=== PATIENT | female | born 1975 | race Asian ===

== ENCOUNTER → 2016-06-25 | Outpatient (CLI) | payer OTHER ==
[~2016-06-25] MED LIST: FERR1TAB61 PO; MTR600X PO; OXYC-57 PO; PRENTAB26 PO
[2016-06-25 12:05] LABS: HEMATOCRIT 32.3 % (37-47)
[2016-06-25 12:49] LABS: URINE APPEARANCE CLEAR (CLEAR); URINE BILIRUBIN NEG (NEG); URINE COLOR YELLOW; URINE EPITHELIAL CELL AUTO >30 /lpf (0-5); URINE NITRITE NEG (NEG); URINE PH 7.5 (4.5-7.5); URINE SPECIFIC GRAVITY 1.008 (1.000-1.030); UROBILINOGEN NEG (NEG)
[2016-06-25 12:55] LABS: MANUAL MICROSCOPIC REQUIRED? NO; REVIEW REQ? YES
[2016-06-25 13:18] LABS: GTGD 50 Grams
== END | disposition home or self-care (01) ==
LOC: C.LAB1850 10:14
PROVIDERS: ATTEND Obstetrics & Gynecology
DX: O09.523 Supervision of elderly multigravida, third trimester (principal)

== ENCOUNTER → 2016-07-07 | Outpatient (CLI) | payer OTHER | END | disposition home or self-care (01) | LOC: C.LAB1850 08:13 | PROVIDERS: ATTEND Obstetrics & Gynecology | DX: O09.523 Supervision of elderly multigravida, third trimester (principal) ==

== ENCOUNTER → 2016-08-19 | Outpatient (CLI) | payer OTHER | END | disposition home or self-care (01) | LOC: C.LABSPEC 13:19 | PROVIDERS: ATTEND Obstetrics & Gynecology | DX: O09.523 Supervision of elderly multigravida, third trimester (principal); Z3A.00 Weeks of gestation of pregnancy not specified ==

== ENCOUNTER 2016-09-10 05:36 | Inpatient (IN) | payer OTHER ==
--- NOTE | 2016-09-09 10:53 | PAT Medication Instructions ---
Service Date Sep 09, 2016. Current Home Medication List Ferrous Sulfate (Iron), 1 TAB PO QAM Multivit/Min/Iron/Fol Ac/Pren ( Vitamin), 1 TAB PO HS Medication Instructions For Your Scheduled Surgery - Do NOT take morning of surgery: Ferrous Sulfate (Iron), 1 TAB PO QAM - Take the night before surgery: Multivit/Min/Iron/Fol Ac/Pren ( Vitamin), 1 TAB PO HS If you have any questions please call us at [phone] or [phone] ( [place]) or [phone]
[2016-09-09 12:11] LABS: BASO % 0.3 %; BASO ABS # 0.02 K/uL (0-0.2); COMPLETE YES; EOS % 0.9 %; HEMATOCRIT 36.1 % (37-47); IG% 0.5 %; LYMPH % 19.2 %; LYMPH ABS # 1.12 K/uL (1.2-3.4); MEAN CELL VOLUME 78.3 fL (80-100); MEAN CORPUSCULAR HEMOGLOBIN 25.4 pg (25-34); MEAN CORPUSCULAR HGB CONC 32.4 g/dl (32-36); MEAN PLATELET VOLUME 10.9 fL (7.4-10.4); NEUT % 73.1 %; PLATELET COUNT 134 K/uL (130-400); RED BLOOD COUNT 4.61 M/uL (4.2-5.4); WHITE BLOOD COUNT 5.83 K/uL (4.8-10.8)
[2016-09-09 12:41] LABS: BLOOD UREA NITROGEN 8 mg/dl (7-18); BUN/CREATININE RATIO 13.2 (10-20); CALCIUM 9.1 mg/dl (8.5-10.1); CARBON DIOXIDE 21 mmol/L (21-32); CHLORIDE 107 mmol/L (98-107); CREATININE 0.57 mg/dl (0.60-1.20); GLUCOSE 74 mg/dl (70-99); POTASSIUM 4.1 mmol/L (3.5-5.1); SODIUM 138 mmol/L (136-145)
--- NOTE | 2016-09-09 15:11 | HISTORY & PHYSICAL EXAMINATION ---
DATE OF ADMISSION: 09/10/2016 CHIEF COMPLAINT: Planned section. HISTORY OF PRESENT ILLNESS: A 41-year-old 3, para 1-0-1-1 at 39-2/7 weeks estimated gestational age with an EDC of 09/15/2016, who presents to the office for planned delivery tomorrow morning. The patient currently denies complaints. She denies any vaginal bleeding or leaking. She denies any regular contractions. She reports good movement. She underwent nonstress test today and it was reactive. Her has been complicated by advanced maternal age as well as diet-controlled gestational diabetes. LABS: O positive blood type, rubella immune, group beta strep screening negative. The patient's last abdominal circumference was at the 76th percentile on 08/19/2016. The patient did do second trimester serum screening that was also negative. PAST MEDICAL HISTORY: None. PAST SURGICAL HISTORY: section. ALLERGIES: None. MEDICATIONS: vitamins and folic acid. SOCIAL HISTORY: No tobacco, alcohol or street drug use. FAMILY HISTORY: Noncontributory. No mental retardation or congenital anomalies. REVIEW OF SYSTEMS: Ten system are negative with the exception of recent shortness of breath with activities due to her , history of an L4-L5 disc problem when she was 23 and is now resolved, history of gestational diabetes. PHYSICAL EXAMINATION: VITAL SIGNS: Height 5 feet, weight 140 pounds, blood pressure 102/64. Urine negative for protein and glucose. Nonstress test reactive as noted. Fundal height 36 cm with vertex presentation. GENERAL: She is a pleasant female, well-developed, well-nourished in no acute distress. HEART: Regular rate and rhythm. LUNGS: Clear to auscultation bilaterally. ABDOMEN: Soft, gravid, nontender. Cephalic by Isaac maneuvers. EXTREMITIES: No edema. ASSESSMENT: 1. A 39+ week intrauterine . 2. Prior section, desires repeat section. PLAN: The patient will be admitted tomorrow morning for planned section. She will undergo admission testing with laboratory studies today. She is aware of her preop and postop instructions and course. She signed a consent form, which reviewed risks, alternatives and complications including but not limited to bleeding, infection, anesthesia, injury to maternal and structures.
[2016-09-10] VITALS (14 sets, daily range): BP systolic 82–107; BP diastolic 49–68; PULSE 71–83; TEMP 36.8–37.3; O2SAT 96–99; Ht 152.4 cm; Wt 63.0 kg
[~2016-09-10] VITALS: Ht 152.4 cm; Wt 63.0 kg
[~2016-09-10 05:36] MED LIST changes: -MTR600X PO; -OXYC-57 PO
[2016-09-10] MEDS ORDERED: LACTATED RINGER'S 1000ML 1,000 ML IV SCH ×2 (06:00→08:26)
[2016-09-10] MEDS ORDERED: CEFAZOLIN IV 2,000 MG in DEXTROSE 5% 50ML IV SCH (06:00)
[2016-09-10] MEDS ORDERED: CITRIC ACID/SODIUM CITRATE 15 ML UDC PO SCH (06:00)
[2016-09-10 06:27] LABS: BASO % 0.5 %; BASO ABS # 0.03 K/uL (0-0.2); COMPLETE YES; HEMATOCRIT 33.9 % (37-47); IG% 0.5 %; LYMPH % 19.6 %; LYMPH ABS # 1.18 K/uL (1.2-3.4); MEAN CORPUSCULAR HEMOGLOBIN 25.9 pg (25-34); MEAN CORPUSCULAR HGB CONC 32.7 g/dl (32-36); MEAN PLATELET VOLUME 11.2 fL (7.4-10.4); MONO % 6.7 %; NEUT % 71.7 %; PLATELET COUNT 111 K/uL (130-400); RED BLOOD COUNT 4.29 M/uL (4.2-5.4); WHITE BLOOD COUNT 6.01 K/uL (4.8-10.8)
[2016-09-10] MEDS ORDERED: OXYTOCIN INJ 10 UNITS/ML VIAL ONE (07:02)
[2016-09-10] MEDS ORDERED: MoRPHine SULFATE PF 1 MG/ML 10 ML AMP/VIAL ONE (07:03)
--- NOTE | 2016-09-10 07:05 | History & Physical Bridge Note ---
H&P Re-Evaluation Bridge Note: I have examined the patient, reviewed the History & Physical and in the interval since the performance of the History & Physical I have noted the following changes of clinical significance: No changes noted
[2016-09-10] MEDS ORDERED: ONDANSETRON INJ 2 MG/ML 2 ML VIAL ONE (07:56)
[2016-09-10] MEDS ORDERED: FENTANYL CITRATE INJ 50 MCG/1 ML 2 ML VIAL ONE (08:02)
[2016-09-10] MEDS ORDERED: MIDAZOLAM HCL 1 MG/ML 2ML VIAL ONE (08:07)
[2016-09-10] MEDS ORDERED: KETAMINE HCL INJ 50 MG/ML 10 ML VIAL ONE (08:07)
--- NOTE | 2016-09-10 08:26 | [facility] Post Operative Brief Note ---
Immediate Operative Summary Operative Date Sep 10, 2016. (Syed Hines MD) Pre-Operative Diagnosis 1. 39+ week intrauterine 2. prior cesarian section , desires repeat section 3. gestational diabetes (Syed Hines MD) Post-Operative Diagnosis same (Syed Hines MD) Procedure(s) Performed Repeat casearean section for viable male at 0744 (Syed Hines MD) Surgeon Dr. Lynne Gandhi (Syed Hines MD) Reliability Technicians Surgeon(s) Dr. Hines (Syed Hines MD) Estimated Blood Loss 600 CC (Syed Hines MD) Findings Healthy baby boy delivered. Apgars 8 and 9. Baby weight was 8 pounds 7 ounces. Normal anatomy, both ovaries, fallopian and uterus intact with normal findings (Syed Hines MD) baby is vigorous, cannot speak to healthy (Lynne Gandhi M.D.([employer]/OB)) Specimens placenta cord blood (Syed Hines MD) Drains oliver, clear fluid (Syed Hines MD) Anesthesia spinal w/ duramorph (Syed Hines MD) Complication(s) None (Syed Hines MD) Disposition L&D (Syed Hines MD)
[2016-09-10] MEDS ORDERED: LANOLIN OINT EXT PRN ×2 (08:30)
[2016-09-10] MEDS ORDERED: BENZOCAINE 20% AER SPR 82.5 GM CAN EXT PRN (08:30)
[2016-09-10] MEDS ORDERED: HYDROCORTISONE ACETATE 25 MG SUPP PR PRN (08:30)
[2016-09-10] MEDS ORDERED: DIPHTHERIA/TETANUS/PERTUSSIS 0.5 ML SYR/VIAL IM. ONE (08:30)
[2016-09-10] MEDS ORDERED: SUPERCREAM 0.870 % 15GM JAR EXT PRN (08:30)
[2016-09-10] MEDS ORDERED: SODIUM CHLORIDE 0.9% 1000ML 1,000 ML IV PRN (08:39)
[2016-09-10] MEDS ORDERED: NALOXONE HCL INJ 1 MG in SODIUM CHLORIDE 0.9% 1000ML 1,000 ML IV PRN (08:39)
[2016-09-10] MEDS ORDERED: NALOXONE HCL INJ 0.08 MG in SYRINGE 1.8 ML IV PRN (08:39)
[2016-09-10] MEDS ORDERED: LACTATED RINGER'S 1000ML 500 ML IV PRN (08:39)
--- NOTE | 2016-09-10 08:39 | Anesthesiology Progress Note ---
Anesthesia Post Op Note Date & Time Sep 10, 2016 at 08:39 Notes Mental Status: alert / awake / arousable, participated in evaluation Pt Amnestic to Procedure: Yes Nausea / Vomiting: adequately controlled Pain: adequately controlled Airway Patency, RR, SpO2: stable & adequate BP & HR: stable & adequate Hydration State: stable & adequate Neuraxial Anesthesia: was administered, sensory block is resolving Anesthetic Complications: no major complications apparent
[2016-09-10] MEDS ORDERED: EpHEDrine SULFATE INJ 50 MG/ML AMP IV PRN (08:45)
[2016-09-10] MEDS ORDERED: DiphenhydrAMINE HCL 50 MG/ML VIAL IV PRN (08:45)
[2016-09-10] MEDS ORDERED: NALOXONE HCL 0.4 MG/1 ML VIAL/CARP IV PRN (08:45)
[2016-09-10] MEDS ORDERED: ONDANSETRON INJ 2 MG/ML 2 ML VIAL IV PRN (08:45)
[2016-09-10] MEDS ORDERED: NO NARCOTICS OR SEDATIVES SCH (08:45)
[2016-09-10] MEDS ORDERED: MoRPHine SULFATE 2 MG/ML CARP IV PRN (08:45)
[2016-09-10] MEDS ORDERED: KETOROLAC TROMETHAMINE 30 MG/ML VIAL IV. PRN (08:45)
[2016-09-10] MEDS ORDERED: NALBUPHINE HCL INJ 10 MG/ML AMP IV PRN (08:45)
[2016-09-10] MEDS ORDERED: MoRPHine SULFATE PF 1 MG/ML 10 ML AMP/VIAL INT SPINAL PRN (08:45)
--- NOTE | 2016-09-10 08:54 | OPERATIVE REPORT ---
DATE OF OPERATION: 09/10/2016 PREOPERATIVE DIAGNOSES: 1. 39-week intrauterine . 2. Prior section, desires repeat section. 3. Gestational diabetes of , diet controlled. POSTOPERATIVE DIAGNOSIS: Same. PROCEDURE: Repeat low transverse section. SURGEON: Dr. Lynne Gandhi. CHEMIST PROTEINS: Dr. Hines, PGY-1. ANESTHESIA: Spinal with Duramorph. IV FLUIDS: 1000 mL. ESTIMATED BLOOD LOSS: 600 mL. URINE OUTPUT: 125 mL. FINDINGS: Viable male infant, Apgars 8 and 9, weight 8 pounds 7 ounces. Normal uterus, tubes and ovaries bilaterally. INDICATIONS: A 41-year-old 2, para 1 at 39+ weeks with a history of prior section done in [place] with no ability to obtain the operative report. She was counseled regarding repeat and desired such. She also was managed as a gestational diabetic in that was diet controlled. PROCEDURE: The patient was taken to the operating room and identified. After adequate spinal anesthesia was obtained, she was placed in the supine position with a leftward tilt and prepped and draped in the usual sterile fashion. A knife was used to create a Pfannenstiel skin incision that was carried down to the underlying layer of fascia. The fascia was nicked in the midline and this opening was extended laterally using Marquis scissors. María Elena clamps were placed in the superior and inferior aspects of the fascial incision tenting it upwards and the underlying rectus muscles were dissected off the overlying fascia both sharply and bluntly using Marquis scissors. The rectus muscles were bluntly in midline. The peritoneal cavity was opened up into bluntly. This opening was stretched. The bladder blade was placed. The vesicouterine peritoneum was attempted to be grasped; however, the reflection was low. The knife was used to create a hysterotomy that was then stretched. The amniotic sac was ruptured and the operators hand was placed through the hysterotomy and the head was elevated. Bladder blade was removed. With fundal pressure, the head was flexed and delivered. The nose and mouth were bulb suctioned. A loose nuchal cord x1 was reduced. The shoulders and body were then delivered with further fundal pressure and the infant was vigorous and crying at . The cord was clamped and cut and the infant was handed off to the waiting pediatricians. Cord blood was obtained. The placenta was manually extracted. The uterus was exteriorized and cleared of all clots and debris. The uterus was closed in a running interlocking fashion using 0 Vicryl followed by a second imbricating layer of 0 Vicryl. Hemostasis was inadequate and a venous sinus was noted. The uterine tone also was not adequate with dilute Pitocin and therefore IM 0.2 mg of Methergine was administered in the uterus. The uterine tone did improve. The venous sinuses were managed with [id number] sutures of 0 Vicryl for excellent hemostasis. The pelvis was irrigated. The uterus was returned to the abdomen. The gutters were cleared of all clots and debris. The hysterotomy was reinspected and noted to be hemostatic. The fascia was closed in a running fashion using 0 Vicryl. Subcutaneous fat was copiously irrigated and the skin was reapproximated using 4-0 Vicryl. This was in a subcuticular fashion. All sponge, lap and needle counts were correct x2. The patient returned to the recovery room in stable condition. I attest to the content of the Intraoperative Record and any orders documented therein. Any exceptio ns are noted below.
[2016-09-10] MEDS ORDERED: OXYTOCIN INJ 20 UNITS in LACTATED RINGER'S 1000ML 1,000 ML IV SCH (09:15)
[2016-09-10] MEDS: SIMETHICONE 80 MG CHEW PO SCH ×3 (13:00→20:00)
[2016-09-10] MEDS: DOCUSATE SODIUM 100 MG CAP PO SCH (19:56)
[2016-09-11 00:30] VITALS: O2SAT 97
[2016-09-11 01:30] VITALS: O2SAT 99
[2016-09-11] MEDS ORDERED: ONDANSETRON INJ 2 MG/ML 2 ML VIAL IV PRN (01:30)
[2016-09-11] MEDS ORDERED: OXYCODONE/ACETAMINOPHEN 5-325 TAB PO PRN (01:30)
[2016-09-11] MEDS ORDERED: DC INTRASPINAL MORPHINE ONE (01:30)
[2016-09-11] MEDS ORDERED: KETOROLAC TROMETHAMINE 30 MG/ML VIAL IV. PRN (01:30)
[2016-09-11 04:20] VITALS: BP 98/60; PULSE 84; TEMP 36.8
[2016-09-11] MEDS: OXYCODONE/ACETAMINOPHEN 5-325 TAB PO PRN ×4 (06:25→21:23)
[2016-09-11 06:30] LABS: BASO % 0.3 %; BASO ABS # 0.03 K/uL (0-0.2); COMPLETE YES; EOS % 0.9 %; IG% 0.2 %; LYMPH % 10.6 %; LYMPH ABS # 1.05 K/uL (1.2-3.4); MEAN CELL VOLUME 79.9 fL (80-100); MEAN CORPUSCULAR HEMOGLOBIN 25.6 pg (25-34); MEAN CORPUSCULAR HGB CONC 32.1 g/dl (32-36); MEAN PLATELET VOLUME 11.2 fL (7.4-10.4); MONO % 8.9 %; NEUT % 79.1 %; PLATELET COUNT 118 K/uL (130-400); RED BLOOD COUNT 3.63 M/uL (4.2-5.4); WHITE BLOOD COUNT 9.87 K/uL (4.8-10.8)
--- NOTE | 2016-09-11 06:46 | Progress Note ---
Subjective Sep 11, 2016. Subjective conversation w/ patient, physical exam Ambulation: ambulating normally Voiding: oliver catheter in place (oliver catheter removed this morning) Passing Gas: Yes Diet Tolerance: Regular Diet Lochia: Small Feeding Type: Breast Feeding (pumping) Review of Systems Constitutional: No chills, No fever Respiratory: No cough, No shortness of breath Cardiac: No chest pain, No claudication Objective Vital Signs Date Time Temp Pulse Resp B/P Pulse Ox O2 Delivery O2 Flow Rate FiO2 09/11/16 04:20 36.8 84 18 98/60 Room Air 09/11/16 01:30 18 99 09/11/16 00:30 18 97 09/10/16 23:30 18 99 09/10/16 23:30 36.9 83 18 82/49 99 Room Air 09/10/16 23:30 99 Room Air 09/10/16 21:30 18 97 09/10/16 20:30 18 98 09/10/16 20:00 36.8 74 18 94/59 Room Air 09/10/16 19:30 18 98 09/10/16 18:30 18 97 09/10/16 18:00 16 97 09/10/16 17:00 16 96 09/10/16 16:00 37.3 76 16 107/67 97 09/10/16 16:00 16 97 09/10/16 16:00 97 Room Air 09/10/16 15:00 18 97 09/10/16 14:00 37.1 76 18 95/68 97 Room Air 09/10/16 14:00 18 97 09/10/16 13:00 36.9 71 20 95/58 98 Room Air 09/10/16 13:00 20 98 09/10/16 12:00 18 98 09/10/16 12:00 37.1 73 18 102/65 98 Room Air 09/10/16 11:30 37.2 79 18 97/61 99 Room Air 09/10/16 11:30 99 Room Air 09/10/16 11:30 99 Room Air 09/10/16 11:30 18 99 Physical Exam General Appearance: WELL-APPEARING, NO APPARENT DISTRESS Respiratory/Chest: lungs clear, no accessory muscle use Cardiovascular: regular rate, rhythm, no murmur Fundus: Firm, Non-Tender, Relation to Umbilicus (at umbilicus) Incision Description: Clean, Dry & Intact Extremities: non-tender, no calf tenderness Laboratory Results Last 24 Hours Test 09/10/16 07:41 09/11/16 06:00 Bedside Glucose 104 mg/dl White Blood Count 9.87 K/uL Red Blood Count 3.63 M/uL Hemoglobin 9.3 g/dL Hematocrit 29.0 % Mean Corpuscular Volume 79.9 fL Mean Corpuscular Hemoglobin 25.6 pg Mean Corpuscular Hemoglobin Concent 32.1 g/dl Platelet Count 118 K/uL Mean Platelet Volume 11.2 fL Neutrophils (%) (Auto) 79.1 % Lymphocytes (%) (Auto) 10.6 % Monocytes (%) (Auto) 8.9 % Eosinophils (%) (Auto) 0.9 % Basophils (%) (Auto) 0.3 % Neutrophils # (Auto) 7.80 K/uL Lymphocytes # (Auto) 1.05 K/uL Monocytes # (Auto) 0.88 K/uL Eosinophils # (Auto) 0.09 K/uL Basophils # (Auto) 0.03 K/uL RDW Standard Deviation 40.0 fL RDW Coefficient of Variation 13.9 % Immature Granulocyte % (Auto) 0.2 % Immature Granulocyte # (Auto) 0.02 K/uL Assessment and Plan Post-Op Day#: 1 Continue Routine Care: s/p C section day 1 - vitals reviewed and wnl - Hgb 9.3 this morning - blood: O+, GBS-, Rubella immune - mother pumping breast milk - encourage ambulation, and monitor lochia - patient doing well clinically (baby taken to [facility] due to imperforate anus) - CONTINUE ROUTINE POST CARE Resident Physician Supervision Note: I interviewed and examined the patient. Discussed with Dr. Hines and agree with findings and plan as documented in the note. Any exceptions or clarifications are listed here: [None] Documented By: Amrik Jordan
[2016-09-11 07:30] VITALS: BP 96/63; PULSE 82; TEMP 37.2
[2016-09-11] MEDS: DOCUSATE SODIUM 100 MG CAP PO SCH ×2 (08:55→20:49)
[2016-09-11] MEDS: PRENATAL VITAMIN TAB PO SCH (08:55)
[2016-09-11] MEDS: SIMETHICONE 80 MG CHEW PO SCH ×4 (08:55→20:48)
[2016-09-11] MEDS: IBUPROFEN 600 MG TAB PO PRN ×3 (12:05→21:22)
[2016-09-11 16:10] VITALS: BP 97/59; PULSE 76; TEMP 36.8; O2SAT 98
[2016-09-11 23:50] VITALS: BP 93/58; PULSE 73; TEMP 36.7; O2SAT 98
[2016-09-12] MEDS: OXYCODONE/ACETAMINOPHEN 5-325 TAB PO PRN ×4 (03:21→23:14)
[2016-09-12] MEDS: IBUPROFEN 600 MG TAB PO PRN ×4 (03:21→23:14)
[2016-09-12] MEDS ORDERED: MTR600X PO (05:15)
[2016-09-12] MEDS ORDERED: OXYC-57 PO (05:15)
--- NOTE | 2016-09-12 05:17 | Discharge Instructions ---
Discharge Instructions Date of Service Sep 12, 2016. Admission Reason for Admission: Previous Section Discharge Discharge Diagnosis / Problem: s/p delivery Discharge Goals Goal(s): Routine recovery after Medications Continue Dispensed Medications: supercream, dermaplast, tucks, lansinoh Activity Recommendations Activity Limitations: as noted below . Instructions / Follow-Up Instructions / Follow-Up ACTIVITY RECOMMENDATIONS: * Gradual return to full activity over the next 2-3 weeks. * No lifting - nothing heavier than baby over the next 2-3 weeks. * Do not engage in vigorous exercise, sexual activity or sports until cleared by your physician. * Do not drive or operate any motorized equipment until cleared by your physician. * You may shower/bathe daily. MEDICATIONS: For discomfort or pain, you may use Acetaminophen (Tylenol), Ibuprofen (Advil), or Naproxen (Aleve) following the package directions. For constipation you may use Colace following the package directions. You will need to take a vitamin daily and at separate time of day an iron tablet for next 6wks. BREAST CARE: If you are not breast feeding: * Wear a supportive bra 24 hours a day for one to two weeks. * Avoid stimulating your breasts and nipples as much as possible during the first few weeks after delivery. * When taking a shower, have the warm water hit your back, not breasts. * When your breasts feel full, apply ice packs. Usually three to four times a day helps ease the discomfort. * Take a mild pain medication (Tylenol / Motrin) when you are uncomfortable. If breast feeding: * Use breast milk to lubricate nipples. Lansinoh cream may be used for sore nipples. You do not need to remove cream prior to breast feeding. If using a different brand of cream, check the label for directions regarding removal of cream prior to nursing. * Wear a supportive bra. * If having problems with breasts or breast feeding, call a jd edwards consultant or your health care provider. SPECIAL CARE INSTRUCTIONS: When you are discharged from the hospital, it is important for you to follow the instructions listed below: * During the first week at home, you should be able to care for yourself and your baby. In addition, the usual light household activities are encouraged. * Limit your activities to the way you feel. Do not try to clean the house or move furniture. Be sensible. * If you actively engage in sports and have done so up until the time of your delivery, you may resume these activities as soon as you feel able. This may take up to one month or even longer. Use good judgment. * Continue to take your vitamins for at least six weeks after the of your baby. * Your diet need not be limited unless you were on a special diet before your delivery. Breast-feeding mothers need around 2500 calories per day and at least 64-80 ounces of fluid per day (8 to 10 glasses). * You should eat foods from the four major food groups. Crash diets or fad diets are to be avoided. Eating lean meats, fresh fruits and vegetables, low-fat dairy products, high fiber foods and a regular exercise program, will help you get back to your pre- weight without putting your health at risk. * Constipation is sometimes a problem after delivery. Take a mild laxative as needed. If breast feeding, Milk of Magnesia is acceptable to use. You may use a suppository or Fleets enema. * A daily shower or tub bath is suggested. Wash incision daily with warm soapy water and pat dry. It doesn't need to be covered unless drainage is present. * A bloody vaginal discharge will usually continue until around four weeks . A small amount of bleeding may continue for as long as six weeks. Vaginal discharge changes from the bright red bleeding after delivery to pink then brownish and finally yellowish-pink before becoming white and disappearing. * Bleeding may increase with activity. Your first period may come in 4-8 weeks. If you are breast feeding, your period may be delayed even longer. * [place] (sex) can begin whenever both you and your partner feel comfortable and do not have any form of genital infection. It is recommended that you wait at least six weeks for internal and external healing to occur. If you have questions, please talk to your health care practitioner. A condom should be used to prevent infection and . * Foreplay, gentle intercourse and lubrication is very important the first several times to prevent pain. A water-based lubricant such as K-Y jelly or Astroglide may be used. * If you have RH negative blood and your baby is RH positive, you will receive RHOGAM by injection prior to discharge. The nurse will give you a card to keep with you that has the date and place that you received RHOGAM after delivery. * During your care, you had a Rubella screen done to check for the presence of rubella antibodies in your blood. If your test was negative, you will receive a Rubella vaccine prior to discharge. This vaccine may cause a fever, soreness at the injection site and flu-like symptoms. If these symptoms persist, notify your health care practitioner. is not advised for one month after a Rubella vaccine. * Verbalizes understanding of car seat law as reviewed with patient nursing. * Car Seat hand-out given and reviewed with patient by nursing. * Shaken baby information reviewed with patient by nursing. Call you doctor if: * Heavy bleeding (saturating several pads an hour) or passing clots the size of your fist. * A fever >101 degrees F (38.3 degrees C) on two occasions four hours apart and /or chills. * Unusual pain in the pelvic or vaginal areas. * Call the doctor for any increased redness, drainage or swelling around the incision and any pain unrelieved by prescribed pain medication. * "Baby Blues" lasting longer than two weeks. If you have any questions or concerns, call your health care practitioner at . FOLLOW UP VISIT: * Please call the office at to schedule a 6 week examination. It is important you keep this appointment. It is important for you to make arrangements for either yearly or twice yearly check-ups thereafter. Current Hospital Diet Patient's current hospital diet: Regular OB Diet Discharge Diet Recommended Diet: Regular Diet Procedures Procedures Performed: Repeat casearean section for viable male infant at 0744 Pending Studies Studies pending at discharge: no Medical Emergencies . Who to Call and When: Medical Emergencies: If at any time you feel your situation is an emergency, please call 911 immediately. . Non-Emergent Contact Non-Emergency issues call your: Ui [employer]er . . "Provider Documentation" section prepared by Lynne Gandhi. VTE Core Measure Inpt VTE Proph given/why not?: Treatment not indicated
--- NOTE | 2016-09-12 07:10 | Progress Note ---
Subjective Sep 12, 2016. Subjective conversation w/ patient, physical exam Ambulation: ambulating normally Voiding: no voiding problems Passing Gas: Yes Diet Tolerance: Regular Diet Lochia: Small Pain: some incisional pain Comment: breast pumping. baby having surgery this am at [facility] [place]. Spouse plans to travel to [facility] and pt wants to stay here. Objective Vital Signs Date Time Temp Pulse Resp B/P Pulse Ox O2 Delivery O2 Flow Rate FiO2 09/11/16 23:50 36.7 73 14 93/58 98 Room Air 09/11/16 23:50 Room Air 09/11/16 16:10 36.8 76 16 97/59 98 Room Air 09/11/16 16:10 98 Room Air 09/11/16 07:30 Room Air 09/11/16 07:30 37.2 82 18 96/63 Room Air Physical Exam General Appearance: WELL-APPEARING, WD/WN, NO APPARENT DISTRESS Respiratory/Chest: lungs clear Cardiovascular: regular rate, rhythm Abdomen: non tender, soft Fundus: Firm, Relation to Umbilicus (2 down) Incision Description: Clean, Dry & Intact Extremities: non-tender Assessment and Plan Post-Op Day#: 2 Continue Routine Care: stable, routine care. ambulate in halls. po pain meds.
[2016-09-12 07:50] VITALS: BP 97/61; PULSE 82; TEMP 36.9
[2016-09-12] MEDS: PRENATAL VITAMIN TAB PO SCH (08:16)
[2016-09-12] MEDS: SIMETHICONE 80 MG CHEW PO SCH ×3 (08:16→20:00)
[2016-09-12] MEDS: DOCUSATE SODIUM 100 MG CAP PO SCH ×2 (08:16→20:00)
[2016-09-12 15:45] VITALS: BP 103/69; PULSE 81; TEMP 36.9
[2016-09-12 23:20] VITALS: BP 102/64; PULSE 69; TEMP 36.8; O2SAT 98
--- NOTE | 2016-09-13 06:52 | Progress Note ---
Subjective Sep 13, 2016. Subjective conversation w/ patient, physical exam Ambulation: ambulating normally Voiding: no voiding problems Passing Gas: Yes Diet Tolerance: Regular Diet Lochia: Small Feeding Type: Breast Feeding Pain: adequate control Comment: breast pumping. going home today. baby did well with surgery. Objective Vital Signs Date Time Temp Pulse Resp B/P Pulse Ox O2 Delivery O2 Flow Rate FiO2 09/12/16 23:20 36.8 69 18 102/64 98 Room Air 09/12/16 23:20 98 Room Air 09/12/16 16:50 Room Air 09/12/16 15:45 36.9 81 18 103/69 Room Air 09/12/16 07:50 Room Air 09/12/16 07:50 36.9 82 20 97/61 Room Air Physical Exam General Appearance: WELL-APPEARING, WD/WN, NO APPARENT DISTRESS Respiratory/Chest: lungs clear Cardiovascular: regular rate, rhythm Abdomen: non tender, soft Fundus: Firm, Relation to Umbilicus (2 down) Incision Description: Clean, Dry & Intact (bruising on lower edge) Extremities: non-tender Assessment and Plan Post-Op Day#: 3 Continue Routine Care: stable, d/c home, f/u 6 wks pp check. instructions reviewed. reviewed meds. pt was checked on [place] PDMP yesterday and no issues.
[2016-09-13 07:30] VITALS: BP 105/68; PULSE 72; TEMP 36.8; O2SAT 99
--- NOTE | 2016-09-13 08:34 | Anesthesiology Progress Note ---
Anesthesia Post Op Note Date & Time Sep 13, 2016 at 08:33 Vital Signs Pain Intensity: 6.0 Vital Signs Past 12 Hours Date Time Temp Pulse Resp B/P Pulse Ox O2 Delivery O2 Flow Rate FiO2 09/12/16 23:20 36.8 69 18 102/64 98 Room Air 09/12/16 23:20 98 Room Air Notes Mental Status: alert / awake / arousable, participated in evaluation Pt Amnestic to Procedure: Yes Nausea / Vomiting: adequately controlled Pain: adequately controlled Airway Patency, RR, SpO2: stable & adequate BP & HR: stable & adequate Hydration State: stable & adequate Neuraxial Anesthesia: sensory block resolved Anesthetic Complications: no major complications apparent
[2016-09-13] MEDS: SIMETHICONE 80 MG CHEW PO SCH (08:39)
[2016-09-13] MEDS: PRENATAL VITAMIN TAB PO SCH (08:39)
[2016-09-13] MEDS: DOCUSATE SODIUM 100 MG CAP PO SCH (08:39)
[2016-09-13] MEDS: OXYCODONE/ACETAMINOPHEN 5-325 TAB PO PRN (08:40)
[2016-09-13] MEDS: IBUPROFEN 600 MG TAB PO PRN (08:40)
[2016-09-13 10:00] VITALS: BP_DIAS 68; PULSE 72; TEMP 36.8
--- NOTE | 2016-09-15 19:08 | DISCHARGE SUMMARY ---
ADMISSION DIAGNOSES: 1. 39-week intrauterine . 2. Prior section, desires repeat section. 3. Gestational diabetes , diet controlled. DISCHARGE DIAGNOSES: Same. PROCEDURE: Repeat low transverse section. BRIEF HISTORY AND HOSPITAL COURSE: A 41-year-old 2, para 1 at 39+ weeks estimated gestational age with a history of prior section done in [place] with no ability to obtain the operative report. She was counseled regarding repeat and desired such. She was also managed as a gestational diabetic in that was diet controlled. She underwent the above stated procedure without incident and her estimated blood loss was 600 mL. Unfortunately, the was discovered to have imperforate anus and was sent to [facility] for further management and treatment. The patient's postoperative course and recovery was unremarkable. On her postop day #3, she was tolerating a regular diet, voiding spontaneously without difficulty and ambulating without difficulty and was ready to go home. She was discharged to home with instructions as well as pain medication prescriptions. She was to follow up in 6 weeks for a checkup.
== END 2016-09-13 10:00 | disposition home or self-care (01) | DRG 766 ==
LOC: C.LD 05:36 → EDSTATUS 13:28 → C.OBG 13:49
PROVIDERS: ADMIT Obstetrics & Gynecology; ATTEND Obstetrics & Gynecology
PROC: 10D00Z1 Extraction of Products of Conception, Low, Open Approach (ICD-10-PCS; principal; 2016-09-10 07:30)
DX: O24.420 Gestational diabetes mellitus in childbirth, diet controlled (principal); Z37.0 Single live birth; O34.211 Maternal care for low transverse scar from previous cesarean delivery; O26.893 Other specified pregnancy related conditions, third trimester; O69.81X0 Labor and delivery complicated by cord around neck, without compression, not applicable or unspecified; Z3A.39 39 weeks gestation of pregnancy; Z79.899 Other long term (current) drug therapy